=== PATIENT | male | born 1980 | race Caucasian/White ===

== ENCOUNTER 2023-10-30 00:57 | Day surgery (SDC) | payer OTHER, SELFPAY ==
[2023-10-23 10:58] VITALS: BMI 36.6
--- NOTE | 2023-10-23 11:18 | PC.NURSE ---
Report to the Outpatient Waiting Room, entrance under the green pavilion located off [facility], at time 0900 on date _10/30/23 . Planned Procedure Time: __1100 . Time changes happen often and if your time is changed the preop area will call you the afternoon before. - You and your visitor will be asked to self-screen and do not enter if you have any COVID symptoms. - A mask is optional within the hospital at this time. Patients may have clear liquids (water, carbonated beverages, clear teas, apple juice) until 3 hours prior to surgery with a maximum of 20 ounces. - No food from midnight until time of surgery - Take the following medications with a SIP of water the morning of surgery: NONE DO NOT STOP ANY OF YOUR OTHER PRESCRIPTION MEDICATIONS PRIOR TO SURGERY ?EXCEPT THE FOLLOWING Medications to discontinue per physician NONE Date to take last dose____NONE Please no make-up, nail greek, hairspray, perfume, deodorant, or body powder the day of surgery. No jewelry (including any body piercings) or valuables the day of surgery, leave them at home. Please take a shower or bath the night before, or the morning of, surgery with an antibacterial soap. Wear comfortable, loose fitting clothing. - Jewelry must be removed prior to entering the operating room. Rings and piercings that are not removed may be cut off. - The hospital will not accept responsibility for valuables. - Please leave all valuables, including medications, at home the day of surgery. If you are going home after surgery, a licensed pile driver engineer must drive you home. - NO public transportation without another adult if you receive anesthesia. - We recommend that an adult stay with you for 24 hours following discharge. - We also recommend that you do not drive, make important decision, drink alcoholic beverages, or take any drugs that were not prescribed by your health care provider for at least 24 hours after your discharge time. Follow any additional instructions given to you from your surgeon. If you or anyone in your household have experienced Covid symptoms in the past week, please notify your surgeon or the nurse liaison at the phone number below for possible testing. Telephone instructions given to ___HEATHER and asked if any additional questions and then verbalized understanding. Patient advised to call surgeon office or pre surgery nurse liaison [phone] if any additional questions.
--- NOTE | 2023-10-26 08:17 | PM.IMHP ---
H&P: HPI History of Present Illness Date/Time: 10/26/23 08:17 Chief Complaint: Patient has a medial meniscal tear left knee. He has catching and locking in the knee and mechanical-type symptoms. He has failed conservative treatment would like to proceed with arthroscopic intervention of his left knee. Review of Systems Musculoskeletal: Musculoskeletal: Reports arthralgias, Reports joint swelling and Reports stiffness [facility] Surgical History Surgical History History of appendectomy History of foot surgery right History of shoulder surgery right Family History Family History Father Cancer Mother Diabetes mellitus Social History Social History Smoking status: Unknown if ever smoked Tobacco type: smokeless tobacco Smokeless tobacco user: chewing tobacco Second hand tobacco smoke exposure: No Additional smoking assessment comments: 1 CAN OF CHEWING TOBACCO DAILY Alcohol intake: current Alcohol use details: occasionally Substance use: never Substance use type: does not use Lack of Transportation: No Lack of Food: Never True Current Housing: I Have Housing Concerned About Future Housing: No Difficulty Paying Gas/Electric Bills: No Difficulty Paying for Meds: No Currently Unemployed: No Education: High School Diploma/GED Difficulty w/ Childcare or Family Care: No Living arrangements: alone Occupation/Education: occupation Additional occupation/education comments: concrete work Spiritual care concerns: No Meds Home Medications and Allergies Allergies Allergy/AdvReac Type Severity Reaction Status Date / Time No Known Allergies Allergy Verified 10/23/23 11:15 Exam Narrative: On exam he is tender medially onthe LEFT knee, and has catching locking and pain. He has mechanical symptoms. He is tender along the joint line has a positive Anastasiya's. He has swelling and pain with manipulation of the knee. He walks with an antalgic gait. Eyes: General: appearance normal, both eyes and all related structures Neck: Neck: supple Resp: Effort & Inspection: normal respiratory effort Cardio: Rate: regular rate Rhythm: regular rhythm No Data to Display Assessment and Plan Assessment and plan (1) Acute medial meniscus tear of left knee: Code(s): S83.242A - Other tear of medial meniscus, current injury, left knee, initial encounter Status: Acute Assessment and Plan: Patient has meniscal tear left knee. He has catching locking and pain with any manipulation. He has failed conservative treatment like to proceed with arthroscopic intervention. Will proceed per his request discussed risks benefits limitations and alternatives. Surgeries arthroscopy partial meniscectomy proceed as indicated left the knee.
[2023-10-30] VITALS (8 sets, daily range): BP systolic 109–153; BP diastolic 78–102; PULSE 53–87; RESP 11–16; TEMP 36.1–37.2; O2SAT 97–99
--- NOTE | 2023-10-30 06:53 | WPDHPUPDATE1 ---
History and Physical Update Update Date/Time: 10/30/23 06:53 History and Physical has been reviewed, including an updated exam of the patient. There are NO changes in the patient's condition. Risks, benefits, and alternatives have been discussed and questions answered. Patient agrees to proceed with procedure.
--- NOTE | 2023-10-30 08:24 | P.PNAN_ITS ---
Anes - Initial Pre Proc Eval Procedure: Operation Date: 10/30/23 11:00 Proposed Procedures p Left Knee Arthroscopy, Partial Meniscectomy - Jaydon Mars MD Date/Time: 10/30/23 08:24 Surgeon: Jaydon Mars MD Pre Op Diagnosis: left knee mensical tear Patient Data Age: 43 Gender: M Height: 1.65 m Weight: 100 kg Allergies Allergy/AdvReac Type Severity Reaction Status Date / Time No Known Allergies Allergy Verified 10/30/23 08:56 Home Medications Medication Instructions Recorded Confirmed Type No Home Medications 10/30/23 10/30/23 History Patient hx anesthesia problems: none Family hx anesthesia problems: none Results Review: All pre-operative results and documents have been reviewed as part of the pre- operative evaluation. [facility] Past Medical History Medical History (Updated 10/30/23 @ 08:24 by Holland Houston DO) Asthma Surgical History Surgical History History of appendectomy History of foot surgery right History of shoulder surgery right Family History Family History Father Cancer Mother Diabetes mellitus Social History Social History (Updated 10/30/23 @ 09:47 by Holland Houston DO) Smoking status: Unknown if ever smoked Tobacco type: smokeless tobacco Smokeless tobacco user: chewing tobacco Second hand tobacco smoke exposure: No Additional smoking assessment comments: 1 CAN OF CHEWING TOBACCO DAILY Alcohol intake: current Alcohol use details: 2-3 drinks/daily Substance use: never Substance use type: does not use Lack of Transportation: No Lack of Food: Never True Current Housing: I Have Housing Concerned About Future Housing: No Difficulty Paying Gas/Electric Bills: No Difficulty Paying for Meds: No Currently Unemployed: No Education: High School Diploma/GED Difficulty w/ Childcare or Family Care: No Living arrangements: alone Occupation/Education: occupation Additional occupation/education comments: concrete work Spiritual care concerns: No Anes - Eval Final PreProcedure Day of Procedure 10/30/23 08:24 Patient weight: obese Heart: regular rate and rhythm Lungs: clear to auscultation Airway: Mallampati scale class II Neurological: alert and oriented Last oral intake: >/= 8 hours ASA classification: III Emergent: no Anesthetic plan: proceed Anesthesia type and monitoring: general LMA and standard monitoring Results Review: All pre-operative results and documents have been reviewed as part of the pre-operative evaluation. Informed Consent: The patient's anesthetic plan and its attendant risks and benefits were discussed with the patient/family/POA. Questions were solicited and answers provided to the satisfaction of the patient/family/POA.
[2023-10-30] MEDS: ACETAMINOPHEN 500 MG TABLET 1000 MG PO (09:03)
[2023-10-30] MEDS: KETOROLAC 15 MG/ML VIAL (*BKC) IV PUSH (09:44)
[2023-10-30] MEDS: LACTATED RINGERS 1,000 ML 30 ML IV CONT (09:44)
[2023-10-30] MEDS: ceFAZolin 2 GM/D5W 50 ML 2 GM/50 ML BAG IVPB (10:57)
[2023-10-30] MEDS: LIDO 1%/EPINEPHRINE 1:100,000 50 ML VIAL 10 ML INFILTRATE (11:29)
--- NOTE | 2023-10-30 11:29 | W.PM.PROC2 ---
Procedure Note - Detailed Date of Procedure 10/30/23 Pre-op Diagnosis LEFT knee mensical tear Post-op Diagnosis Same Procedure Performed LEFT knee arthroscopy with partial meniscetomy Surgeon Jaydon Mars MD Anesthesia General Description of Procedure Patient brought to operating room # 7. An anesthetic was administered. The knee was steriley prepped and draped in the usual manner. Standard portals were used. Superior medial portal was used for the outflow cannula, inferior lateral portal was used for the scope, inferior medial portal was used for the instruments. Arthroscopy was performed, the patellar femoral joint degenerative changes. A large plica was seen and debrided. The medial compartment showed a complex tear posteriorly. The lateral compartment showed fraying. The ACL was intact. Using baskets and cecilia the meniscal tear was trimmed back to a stable base so the nothing further could be pulled into the joint. Any loose or delaminated fragments were gently trimmed to a stable base. At this point the instruments were withdrawn, sutures placed and patient left the operating room in satisfactory condition. Estimated Blood Loss 20 Drains No Packing No Pathology None sent Complications No immediate complications Condition Stable Disposition PACU [facility] Billing Surgery - Charge Forward: Surgery Billing (Medial Meniscus Tear 14023)
[2023-10-30] MEDS: fentaNYL CITRATE INJ (*CRX) 100 MCG/2 ML VIAL 25 MCG IV PUSH ×2 (11:50→12:04)
[2023-10-30] MEDS: oxyCODONE HCL (*CRX) 5 MG TAB IR PO (12:53)
== END 2023-10-30 13:45 | disposition home or self-care (01) ==
PROVIDERS: Visit Provider Orthopaedic Surgery
PROC: (CPT 29870; principal; 2023-10-30 11:00)
DX: S83.242A Other tear of medial meniscus, current injury, left knee, initial encounter (principal); J45.909 Unspecified asthma, uncomplicated; F17.220 Nicotine dependence, chewing tobacco, uncomplicated; E66.9 Obesity, unspecified; Z68.36 Body mass index [BMI] 36.0-36.9, adult; Z98.890 Other specified postprocedural states; Z80.9 Family history of malignant neoplasm, unspecified; X58.XXXA Exposure to other specified factors, initial encounter
CPT/HCPCS: 29881; A9270; J0690; J1100; J1885; J2250; J2405; J2704; J3010; J7120

== ENCOUNTER 2024-03-29 11:07 | Emergency (ER) | payer OTHER, SELFPAY ==
[2024-03-29 11:26] VITALS: BP 152/92; PULSE 60; RESP 16; TEMP 37.1; O2SAT 100
--- NOTE | 2024-03-29 11:50 | ED.EYEPROB ---
HPI - Eye Problem General Chief complaint: Wound/Laceration Stated complaint: paint chip in eye / headaches / lump on neck Time Seen by Provider: 03/29/24 11:50 Source: patient Mode of arrival: ambulatory Limitations: no limitations History of Present Illness HPI Narrative: 44 yo M presents with hemorrhage to R eye. States he hit R eye with paint chip 6 days ago. No pain. Was not bothering him but saw his orthopedic doctor yesterday for follow up of L knee surgery and was told her should have his eye looked at. Pt also states when looking in mirror today the L side of his shoulder/neck looks larger that the R side. No other related symptoms. Denies pain. All systems reviewed and negative except as noted above. Related Data Allergies Allergy/AdvReac Type Severity Reaction Status Date / Time No Known Allergies Allergy Verified 03/29/24 11:50 Review of Systems Review of Systems: CONSTITUTIONAL: Denies fever, chills, or sweats. EYES: Denies visual changes . Reports right eye redness. Denies discharge. ENT: Denies rhinorrhea, congestion, sore throat, or otalgia. CARDIOVASCULAR: Denies chest pain, palpitations, or edema. RESPIRATORY: Denies cough or dyspnea. GASTROINTESTINAL: Denies abdominal pain, nausea, vomiting, or diarrhea. GENITOURINARY: Denies dysuria or hematuria. SKIN: Denies rash or itching. MUSCULOSKELETAL: Denies back pain, joint pain, or myalgia. reports swelling/lump to L shoulder/neck. NEUROLOGIC: Denies headache, numbness, or weakness. PSYCHIATRIC: Denies anxiety or depression. All other systems reviewed are negative, except as documented in HPI. [facility] Past Medical History Medical History Acute medial meniscus tear of left knee Asthma Surgical History Surgical History History of appendectomy History of arthroscopy of left knee History of foot surgery right History of shoulder surgery right Family History Family History Father Cancer Mother Diabetes mellitus Adrenal cancer Sibling No problems noted. Social History Social History (Updated 03/28/24 @ 10:19 by SANDIP Henry) Smoking status: Never smoker Tobacco type: smokeless tobacco Smokeless tobacco user: chewing tobacco Second hand tobacco smoke exposure: No Additional smoking assessment comments: 1 CAN OF CHEWING TOBACCO DAILY Alcohol intake: current Alcohol use details: 2-3 drinks/daily Substance use: never Substance use type: does not use Do You Feel Safe in your Home?: Yes Lack of Transportation: No Lack of Food: Never True Current Housing: I Have Housing Concerned About Future Housing: No Difficulty Paying Gas/Electric Bills: No Difficulty Paying for Meds: No Currently Unemployed: No Education: High School Diploma/GED Difficulty w/ Childcare or Family Care: No Living arrangements: alone Occupation/Education: occupation Additional occupation/education comments: concrete work Gender identity (if verbalized by the patient): Male Spiritual care concerns: No Comments At time of signature, agree with nursing past medical, surgical, social and family history. There is no relevant family history pertinent to the presenting complaint. Exam Narrative: GENERAL: This is a well-nourished, well-developed patient, in no apparent distress. HEAD: normocephalic, atraumatic. EYES: PERRL. Sclera clear/white left eye. subconjunctival hemorrhage of right eye without foreign body. No drainage bilaterally. Vision is grossly intact. EARS: External ears normal NOSE: External nose normal NECK: Neck supple, non-tender without lymphadenopathy, masses or thyromegaly. minimal swelling noted to L side of neck when compared to R side. no tenderness on palpation. CARDIOVASCULAR: Regular rate and rhythm without murmurs
== END 2024-03-29 12:10 | disposition home or self-care (01) ==
PROVIDERS: Emergency Provider Nurse Practitioner Family; PCP Family Medicine
DX: H11.31 Conjunctival hemorrhage, right eye (principal); R22.1 Localized swelling, mass and lump, neck; F17.220 Nicotine dependence, chewing tobacco, uncomplicated; J45.909 Unspecified asthma, uncomplicated
CPT/HCPCS: 99212; G0463